=== PATIENT | female | born 1995 | race Caucasian/White ===

== ENCOUNTER 2017-02-16 18:05 | Emergency (ER) | payer OTHER ==
[~2017-02-16] VITALS: Ht 162.6 cm; Wt 90.0 kg
[2017-02-16 19:23] VITALS: BP 127/65
[2017-02-16] MEDS ORDERED: IBUPROFEN 600MG TABLET PO ONE (22:00)
== END 2017-02-16 22:56 | disposition home or self-care (01) ==
LOC: ER 18:05
DX: S00.03XA Contusion of scalp, initial encounter (principal); S00.83XA Contusion of other part of head, initial encounter; V49.49XA Driver injured in collision with other motor vehicles in traffic accident, initial encounter; Y93.89 Activity, other specified; Y99.8 Other external cause status; Y92.410 Unspecified street and highway as the place of occurrence of the external cause
CPT/HCPCS: 81025; 99283